=== PATIENT | male | born 1960 | race Caucasian/White ===

== ENCOUNTER → 2018-02-21 | Day surgery (SDC) | payer MEDICARE ==
[2018-02-20 13:10] VITALS: BMI 27.2
[~2018-02-21] MED LIST: Cyclopentolate 1% Opth Drop 2 ML BOT FS SCH; Cyclopentolate 1% Opth Drop 2 ML BOT ONE; Fentanyl 100 MCG/2 ML VIAL ONE; Fluorouracil 100 MG, Enoxaparin Sodium 25 MG, EPINEPHrine 0.3 MG, Dextrose 50% 3 ML in ... IVPB SCH; Heparin 10,000 UNITS/ 10 ML VIAL ONE; Lidocaine 1% PF 5 ML VIAL ONE; Lidocaine 2% 10 ML INJ ONE; Midazolam HCl 2 mg/2 ml Vial ONE; PROPOFOL 20 ML ONE; PROPOFOL 200 MG/20 ML VIAL ONE; Phenylephrine 2.5% Ophth Soln 5 ML BOT FS SCH; Phenylephrine 2.5% Ophth Soln 5 ML BOT ONE
--- NOTE | 2018-02-21 12:13 | OP ---
DATE OF PROCEDURE: 02/21/2018 PREOPERATIVE DIAGNOSIS: Epiretinal membrane, vitreous hemorrhage, left eye. POSTOPERATIVE DIAGNOSIS: Epiretinal membrane, vitreous hemorrhage, left eye. PROCEDURE: Pars plana vitrectomy and membrane peel, panretinal photocoagulation, left eye. SURGEON: Dr. Jeffery Damon ANESTHESIA: Local with monitored anesthesia care. COMPLICATIONS: None. PROCEDURE IN DETAIL: The patient was identified in the preoperative holding area. Appropriate conse nt for the planned surgical procedure on the left eye had been obtained. The patient was transported to the operative suite. Appropriate cardiopulmonary monitoring established. Local anesthesia was o btained using retrobulbar and modified Van Lint lid block using 50/50 mixture of 4% lidocaine, 0.75% bupivacaine. The patient was prepped and draped in the usual sterile manner for ophthalmic surgery o n the left eye. Lid speculum was placed in the left eye. The 25-gauge trocars placed in conjunctiva and sclera supratemporally, inferotemporally, and supranasally. Infusion line was placed inferotemp orally. Light pipe and vitreous cutter were inserted into the eye. Core vitrectomy was performed. Membranes were peeled off the retinal surface. Areas of proliferans were identified. These were pee led and cauterized. Panretinal photocoagulation was placed on non-macular areas of the retina. No f urther bleeding. No holes, breaks or tears were identified. Trocars were removed and eye was noted to retain pressure well. Retrobulbar Kenalog and subconjunctival Ancef were placed. Atropine and an tibiotic ointment placed, and the eye was patched and shielded. The patient was taken the postoperat radha recovery unit in good condition having suffered no immediate perioperative complications. DISCHARGE INSTRUCTIONS: The patient was instructed to keep patch and shield on, avoid lifting or deshaun ding, and follow up in the morning with Dr. Damon.
== END ==
LOC: SDC 06:15
PROVIDERS: ATTEND Ophthalmology Retina Specialist
PROC: 08T53ZZ Resection of Left Vitreous, Percutaneous Approach (ICD-10-PCS; principal; 2018-02-21)
PROC: 08NF3ZZ Release Left Retina, Percutaneous Approach (ICD-10-PCS; 2018-02-21)
DX: H35.372 Puckering of macula, left eye (principal); H43.12 Vitreous hemorrhage, left eye
CPT/HCPCS: 36416; J0171; J1644; J1650; J2001; J2250; J2704; J3010; J9190